=== PATIENT | female | born 1970 | race Caucasian/White ===

== ENCOUNTER 2018-05-26 11:27 | Inpatient (IN) | payer MEDICAID, OTHER ==
[2018-05-26 11:43] LABS: PLATELET COUNT 346 10^3/uL (150-400)
--- NOTE | 2018-05-26 11:58 | EDPHY ---
H & P Stated Complaint: suicidal and left forearm laceration Source: Patient - Personal History Current Tetanus/Diphtheria Vaccine: Unsure Current Tetanus Diphtheria and Acellular Pertussis (TDAP): Unsure - Medical/Surgical History Hx Asthma: No Hx Chronic Respiratory Disease: No Hx Diabetes: No Hx Cardiac Disease: No Hx Renal Disease: No Hx Cirrhosis: No Hx Alcoholism: No Hx HIV/AIDS: No Hx Splenectomy or Spleen Trauma: No Other PMH: migraines, hernia, osteroarthritis and chronic pain - Social History Smoking Status: Current every day smoker Alcohol Use: Sober Drug Use: None Time Seen by Provider: 05/26/18 11:29 HPI/ROS: CHIEF COMPLAINT: Suicidal attempt HISTORY OF PRESENT ILLNESS: 48-year-old female with depression and chronic pain on morphine presents after a suicidal attempt. She has felt that life is not worth living and her path is to . She used a razor to slash her left forearm yesterday. She took extra Morphine yesterday so she wouldn't feel the pain. She was expecting to yesterday, but did not and became anxious that it was taking too long. She presents today after her daughter called 911. She was placed on an M1 hold by PD. Minimal oral intake over the last 2-3 days. Tetanus is up-to-date. REVIEW OF SYSTEMS: complete 10 point ROS reviewed and is negative except for the noted elements in the HPI (Verena Jovel) - Physical Exam Exam: General Appearance: Alert, pleasant Eyes: Pupils equal and round, no conjunctival pallor ENT, Mouth: Mucous membranes moist Neck: Normal inspection Respiratory: Lungs are clear to auscultation Cardiovascular: Regular rate and rhythm Gastrointestinal: Abdomen is soft and nontender Neurological: A&O, nonfocal exam Skin: Warm and dry Extremities: Multiple linear lacerations left forearm Psychiatric: Flat affect (Verena Jovel) Constitutional: Initial Vital Signs Temperature (C) 36.5 C 05/26/18 11:49 Heart Rate 99 05/26/18 11:49 Respiratory Rate 15 05/26/18 11:49 Blood Pressure 92/76 L 05/26/18 11:49 O2 Sat (%) 98 05/26/18 11:49 O2 Delivery Mode Room Air Allergies/Adverse Reactions: No Known Allergies Allergy (Unverified 07/28/09 08:14) Home Medications: Medication Instructions Recorded Diazepam [Valium 10 MG (*)] 0.5 - 1 tab PO Q6H PRN #15 tab 07/28/09 Hydrocodone Bit/Acetaminophen 1 tab PO Q4-6PRN PRN 07/28/09 [LORTAB5/325] morphINE IR 15 mg (*) 05/26/18 Medical Decision Making Procedures: Procedure: Laceration repair. Verbal consent was obtained from the patient. The 10 cm, simple superficial, vertical laceration on the left volar forearm was anesthetized in the usual fashion using 6 mL of 1% lidocaine with epinephrine. The wound was irrigated, draped and explored to its base with a gloved finger. There were no deep structures involved. No tendon injury was identified. The wound was repaired with 5 0 Prolene in continuous running stitch. Hemostasis was achieved and patient tolerated procedure well. The procedure was performed by myself. Procedure: Laceration repair. Verbal consent was obtained from the patient. The 3 cm, simple, vertical, superficial laceration on the left forearm was anesthetized in the usual fashion using 3 mL of 1% lidocaine with epinephrine. The wound was irrigated, draped and explored to its base with a gloved finger. There were no deep structures involved. No tendon injury was identified. The wound was repaired with #1, 5 0 Prolene in simple interrupted pattern. Good hemostasis was achieved and patient tolerated procedure well. The procedure was performed by myself. (Elyssa Douglas) ED Course/Re-evaluation: Patient presents after a suicidal attempt with multiple forearm lacerations. She is on an M1 hold. Laboratory studies significant for mild anemia (Hct 31) and hyponatremia, with a sodium level of 128. Clinical history consistent with dehydration. Will encourage oral fluids. d/w pt, no prior h/o hyponatremia. Quantitative HCG is also minimally elevated at 5.3. I doubt that she is . We will repeat a quantitative HCG level for confirmation. (Verena Jovel) 2036: Patient will have a repeat quant HCG in 48 hours. We are still looking for placement. 2042: Patient has been accepted by Dr. [facility]. EMTALA signed. [facility] is aware that they need to recheck the patient's quant HCG. (Aj Hermosillo) - Data Points Laboratory Results: Laboratory Results 05/26/18 11:30 05/26/18 11:30 05/26/18 05/26/18 05/26/18 15:50 14:20 11:30 WBC RBC Hgb Hct MCV MCH MCHC RDW Plt Count MPV Neut % (Auto) Lymph % (Auto) Mercer % (Auto) Eos % (Auto) Baso % (Auto) Nucleat RBC Rel Count Absolute Neuts (auto) Absolute Lymphs (auto) Absolute Monos (auto) Absolute Eos (auto) Absolute Basos (auto) Absolute Nucleated RBC Immature Gran % Immature Gran # Sodium Potassium Chloride Carbon Dioxide Anion Gap BUN Creatinine Estimated GFR Glucose Calcium Beta HCG, Qual Beta HCG, Quant 5.35 mIU/mL H mIU/mL (0.00-4.83) Ur Random Sodium < 5 mEq/L L mEq/L (30-90) Urine Opiates Screen NON-NEGATIVE H (NEGATIVE) Urine Barbiturates NEGATIVE (NEGATIVE) Ur Phencyclidine Scrn NEGATIVE (NEGATIVE) Ur Amphetamine Screen NEGATIVE (NEGATIVE) U Benzodiazepines Scrn NEGATIVE (NEGATIVE) Urine Cocaine Screen NEGATIVE (NEGATIVE) U Marijuana (THC) Screen NON-NEGATIVE H (NEGATIVE) Ethyl Alcohol 05/26/18 05/26/18 05/26/18 11:30 11:30 11:30 WBC 9.20 10^3/uL 10^3/uL (3.80-9.50) RBC 3.33 10^6/uL L 10^6/uL (4.18-5.33) Hgb 10.8 g/dL L g/dL (12.6-16.3) Hct 31.6 % L % (38.0-47.0) MCV 94.9 fL fL (81.5-99.8) MCH 32.4 pg pg (27.9-34.1) MCHC 34.2 g/dL g/dL (32.4-36.7) RDW 12.8 % % (11.5-15.2) Plt Count 346 10^3/uL 10^3/uL (150-400) MPV 9.3 fL fL (8.7-11.7) Neut % (Auto) 73.0 % % (39.3-74.2) Lymph % (Auto) 22.0 % % (15.0-45.0) Mercer % (Auto) 4.5 % % (4.5-13.0) Eos % (Auto) 0.1 % L % (0.6-7.6) Baso % (Auto) 0.1 % L % (0.3-1.7) Nucleat RBC Rel Count 0.0 % % (0.0-0.2) Absolute Neuts (auto) 6.72 10^3/uL H 10^3/uL (1.70-6.50) Absolute Lymphs (auto) 2.02 10^3/uL 10^3/uL (1.00-3.00) Absolute Monos (auto) 0.41 10^3/uL 10^3/uL (0.30-0.80) Absolute Eos (auto) 0.01 10^3/uL L 10^3/uL (0.03-0.40) Absolute Basos (auto) 0.01 10^3/uL L 10^3/uL (0.02-0.10) Absolute Nucleated RBC 0.00 10^3/uL 10^3/uL (0-0.01) Immature Gran % 0.3 % % (0.0-1.1) Immature Gran # 0.03 10^3/uL 10^3/uL (0.00-0.10) Sodium 128 mEq/L L mEq/L (135-145) Potassium 4.9 mEq/L mEq/L (3.5-5.2) Chloride 96 mEq/L L mEq/L (97-110) Carbon Dioxide 20 mEq/l L mEq/l (22-31) Anion Gap 12 mEq/L mEq/L (6-14) BUN 16 mg/dL mg/dL (7-23) Creatinine 0.7 mg/dL mg/dL (0.6-1.0) Estimated GFR > 60 Glucose 128 mg/dL H mg/dL (70-100) Calcium 9.5 mg/dL mg/dL (8.5-10.4) Beta HCG, Qual POSITIVE Beta HCG, Quant Ur Random Sodium Urine Opiates Screen Urine Barbiturates Ur Phencyclidine Scrn Ur Amphetamine Screen U Benzodiazepines Scrn Urine Cocaine Screen U Marijuana (THC) Screen Ethyl Alcohol < 10 mg/dL mg/dL (0-10) Medications Given: Discontinued Medications Ibuprofen (Motrin) 600 mg PO EDNOW ONE Stop: 05/26/18 20:15 Last Admin: 05/26/18 20:27 Dose: 600 mg Departure - Departure Disposition: [facility] IP Clinical Impression: Severe major depression, Attempted suicide, Personality disorder Forearm laceration Qualifiers: Encounter type: initial encounter Laterality: unspecified laterality Qualified Code(s): S51.819A - Laceration without foreign body of unspecified forearm, initial encounter Condition: Fair Referrals: [facility],. [Primary Care Provider] - As per Instructions
--- NOTE | 2018-05-26 19:08 | ASMTLCPROG ---
Notes Note: Notes: Pt was read her rights, signed them, given a copy and rights were left in chart. Date Signed: 05/26/2018 07:07 PM Electronically Signed By:Johnnie Muse
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
--- NOTE | 2018-05-26 19:41 | ASMTTCLDSP ---
TLC Discharge Disposition Disposition Notes: Notes: In consultation with [facility] ED physician, Nishant Moseley MD and on-call psychiatrist, Tao Fontana MD, both concurred that pt appears to meet 27-65 criteria requiring psychiatric hospitalization as pt appears to be at risk of harm to self due to a mental illness condition. Pt was read the Patient Rights and Responsibilities Statement on 16:00, original placed on chart, and was given photocopy of Rights. Pt signed the Patient Rights. Pt was given the [facility] prohibited belongings list while in the ED. Was patient given the Answers: Yes Inpatient Behavioral Health Prohibited Belongings List while in the ED? For inpatient Bolivar Garcia MD admission, the following psychiatrist agreed to accept patient for admission to Behavioral Health ([facility]): Type of Hold: Answers: M1/72-hour Hold Hold initiated by: Answers: Police Date Signed: 05/26/2018 07:41 PM Electronically Signed By:Johnnie Muse
--- NOTE | 2018-05-26 20:06 | ASMTLCPROG ---
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
[2018-05-26] MEDS ORDERED: IBUPROFEN 600 MG TAB PO ONE (20:14)
[2018-05-26] MEDS ORDERED: MAG HYDROX/AL HYDROX/SIMETH 30 ML UDCUP PO PRN (22:53)
[2018-05-26] MEDS ORDERED: MAGNESIUM HYDROXIDE 30 ML UDCUP PO PRN (22:53)
[2018-05-26] MEDS ORDERED: ACETAMINOPHEN 325 MG TAB PO PRN (22:53)
[2018-05-26] MEDS: LORazepam 0.5 MG TAB PO PRN (23:48)
[2018-05-27] MEDS: IBUPROFEN 800 MG TAB PO PRN ×2 (08:17→21:14)
[2018-05-27] MEDS: LORazepam 0.5 MG TAB PO PRN ×4 (08:17→22:17)
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
--- NOTE | 2018-05-27 10:30 | ASMTCMCOM ---
CM Note CM Note Notes: CC met with pt. to complete MTP. Pt. reports not currently having a job. Pt. stated she is unsure if she can return to her friend's home where she was staying. Pt. denied any current legal issues. Pt. denied drinking alcohol, and denied using THC. Pt. denied all other substance use. Pt. reports "chronic pain", which is "all over" her body. Pt. reports she takes narco and morphine for her chronic pain. Pt. stated this is her first mental health hospitalization. Pt. presents as semi-alert, calm, guarded, withholding information, fair to poor eye contact, unkempt, and somewhat cooperative. Staff report pt. sleeping 6 hours and being medication compliant. CC to have pt. sign ROIs for outpatient providers. Date Signed: 05/27/2018 10:29 AM Electronically Signed By:Rama Thomas
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
[2018-05-27] MEDS ORDERED: NICOTINE 14 MG/24 HR PATCH TD PRN (16:05)
[2018-05-27] MEDS: HYDROCODONE/APAP 5/325 TAB PO PRN ×2 (16:13→22:17)
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
[2018-05-28] MEDS: OLANZapine DISINTEGR 5 MG TAB PO PRN ×2 (00:58→22:36)
[2018-05-28] MEDS: LORazepam 0.5 MG TAB PO PRN ×6 (02:10→22:19)
[2018-05-28] MEDS: HYDROCODONE/APAP 5/325 TAB PO PRN ×3 (03:37→16:32)
[2018-05-28] MEDS: IBUPROFEN 800 MG TAB PO PRN ×2 (04:26→14:14)
--- NOTE | 2018-05-28 10:08 | PDMN ---
Medical Necessity Medical necessity: Pt meets IP criteria as of 05/27/2018 per and [facility] [place]Other psychiatric disorders, Adult: IP care); los > 2 mn to r/o unspecified depressive disorder and/or borderline personality disorder; pt presents on M1 hold after cutting her wrist with a razor and stating this was in an attempt to harm herself. Hx of suicide attempts with ingestion, several admissions, homelessness, opioid use, and cannabis use.
[2018-05-28] MEDS: NICOTINE POLACRILEX 2 MG GUM B PRN ×4 (10:44→22:20)
--- NOTE | 2018-05-28 14:53 | ASMTBHDC ---
Notes Note: Notes: The patient completed an LOLLY for P outpatient services. This commercial real estate underwriter notified the patient that she will send a referral for services on behalf of the patient. The patient agreed to follow up with P via walk-in clinic hours (placed in chart). This commercial real estate underwriter discussed smoking cessation with the patient. Date Signed: 05/28/2018 02:52 PM Electronically Signed By:Tara Myles
--- NOTE | 2018-05-28 17:04 | SOAPPROG ---
SOAP Progress Note Assessment/Plan: Assessment: 48 yo woman with h/o chronic pain and polysubstance dependence was admitted after intentional self-inflicted lac to forearm. She claims she felt hopeless b/ c she "didn't see a path forward" after roommate tried to evict her from his apartment. WEEKEND PLAN: 05/28/18 16:50 1. Patient continues to deny any mood related sxs. She denies sadness, depression, anxiety, hopelessness, helplessness, worthlessness. She also denies any thoughts, plan or intent to hurt herself or anyone else. 2. Patient denies any s/s of opioid w/d. She has been taking [place] 5mg Q6H as often as possible. She is also taking Ativan 1mg Q6H for anxiety, even though patient denied feeling anxious when MD talked to her and she shows no outward signs of anxiety, including no restlessness, fidgeting, distress, distraction. 3. Patient signed LOLLY for her current PCP, Jerrica Singer, and for [facility]. Patient said her MOC recommended she see a therapist at [facility] in [place]. CC will make a referral to [facility]. contacted [facility] at to reach Jerrica Singer NP, but the urgent care said she doesn't work there anymore. MD will ask CC to attempt to locate patient's PCP and send a copy of Discharge Summary to her provider when she leaves hospital. 4. MD advised patient against using high doses of narcotics to treat her chronic pain. MD is concerned b/c patient's SOC, Silvana, reported incident in past when patient was driving around taking more than prescribed amount of narcotics and texted her boyfriend at the time. Boyfriend alerted 911 and police found patient unconscious in public park. Patient also admitted to taking more than prescribed amount of opiates on day of admission prior to cutting herself on forearm. believes patient is at risk for severe adverse consequences of taking too many opiates. She is also at risk for engaging in reckless and dangerous behavior while under the influence of narcotics and other drugs, such as THC, which patient uses on regular basis. has advised patient of these risks and suggested she work with [facility] and shipyard painter apprentice to reduce her dependence on opiates and THC and find less dangerous alternative methods to treat her chronic pain. Patient says she is not willing to do this. 5. Patient plans to d/c tomorrow when hold expires. She is trying to contact her roommate to see if she can stay at his apartment for a few days until she locates a new housing arrangement. 6. Likely d/c tomorrow. Subjective: MD and RN met with patient. Patient says she was not feeling depressed prior to cutting her arm. She claims it was an impulsive act b/c she felt she didn't have a "path forward" when she found out her roommate was evicting her. She denies feeling sad, helpless, hopeless, worthless, anxious or depressed. She denies any prior manic episodes. She denies any psychotic sxs. She does not want to take any psych meds, and has no acute condition or sxs that would require any psychotropic medications. Based on SOC's report, patient has done reckless and dangerous things in past under the influence of mood altering substances such as opiates and THC. MD recommended patient reduce her reliance on narcotics and THC by finding effective alternatives to manage her chronic pain. MD referred patient to [facility] through [facility] and a shipyard painter apprentice within the [facility]. However, patient states she isn't interested in reducing her use of opiates or finding alternatives to her current pain regimen. Objective: Vital Signs Temp Pulse Resp BP Pulse Ox 36.3 C 89 16 101/56 L 97 05/28/18 06:00 05/28/18 06:00 05/28/18 06:00 05/28/18 06:00 05/28/18 06:00 Laboratory Results 05/28/18 14:00 MSE: Affect: Euthymic Mood: "OK" TP: Linear, goal-directed TC: Denies any SI/ HI Insight/Judgment: Poor - Time Spent With Patient Time Spent With Patient: 25" - Pending Discharge Pending Discharge Within 24 Hours: Yes Pending Discharge Date: 05/29/18 (Likely to d/c on Tuesday) Pending Discharge Time: 11:00 ICD10 Worksheet Patient Problems: Problems Problem Status Onset Attempted suicide Acute Forearm laceration Acute Personality disorder Acute Severe major depression Acute
[2018-05-28] MEDS: FERROUS SULFATE 325 MG TAB PO SCH (18:16)
[2018-05-29] MEDS: LORazepam 0.5 MG TAB PO PRN (02:26)
[2018-05-29] MEDS: OLANZapine DISINTEGR 5 MG TAB PO PRN (02:27)
[2018-05-29] MEDS: HYDROCODONE/APAP 5/325 TAB PO PRN ×2 (04:07→10:48)
[2018-05-29 06:29] VITALS: BP 112/57
[2018-05-29] MEDS: IBUPROFEN 800 MG TAB PO PRN (08:13)
[2018-05-29] MEDS: FERROUS SULFATE 325 MG TAB PO SCH (08:13)
--- NOTE | 2018-05-29 08:44 | ASMTBHDC ---
Notes Note: Notes: CC was able to confirm all necessary follow up apts. including PCP apt per Hospitalist, etc Follow up with: [address], [address] O# [phone] [facility] Time & Dates: Tuesday-Tuesday from 8:30-11:30 & 12:30-14:30; excluding afternoons This is for the initial 30 minute appointment to do paperwork and CT should bring ID, insurance card, etc. [address] [address] Must complete coordinated entry through [facility] prior to arriving at the senior living. Dr. Coburn [facility] [address], FAX Next Apt: TuesdayMay 30 (05/30/18) at 4pm with Dr[address] Coburn. Please bring ID, insurance card and hospital paperwork. Follow up with: [address], [address] O# [phone] [facility] Time & Dates: Tuesday-Tuesday from 8:30-11:30 & 12:30-14:30; excluding afternoons Next appointment This is for the initial 30 minute appointment to do paperwork and CT should bring ID, insurance card, etc. [address] [address] Must complete coordinated entry through [facility] prior to arriving at the senior living. Dr. Coburn [facility] [address], FAX Next Apt: TuesdayMay 30 (05/30/18) at [address] Coburn. Please bring ID, insurance card and hospital paperwork. Date Signed: 05/29/2018 08:43 AM Electronically Signed By:Bong Gaitan
--- NOTE | 2018-05-29 09:13 | SOAPPROG ---
SOAP Progress Note Assessment/Plan: Assessment: Anemia: H/H stable 05/28/2018 to 05/29/2018. Advise follow-up testing within 3 - 5 days. * Continue ferrous sulfate daily for 30 days and then recheck CBC and iron panel. * Unclear of degree of anemia is accounted for by blood loss from lacerations. Advise FIT test, hemoccults or screening colonoscopy to evaluate for GI blood loss. Consider Gynecology evaluation regarding possibility of dysfunctional uterine bleeding. Hyponatremia, resolved Positive test. B-HCG subsequently normal. Likely false positive. 05/29/18 09:07 Subjective: Labs reviewed. Objective: Vital Signs Temp Pulse Resp BP Pulse Ox 36.4 C 59 L 14 112/57 L 97 05/29/18 06:00 05/29/18 06:00 05/29/18 06:00 05/29/18 06:00 05/29/18 06:00 Laboratory Results 05/29/18 05:00 05/28/18 14:00 ICD10 Worksheet Patient Problems: Problems Problem Status Onset Adjustment disorder with mixed disturbance of emotions and conduct Acute Cannabis use disorder, severe, dependence Acute Nicotine dependence Acute Opioid use disorder, severe, dependence Acute Severe benzodiazepine use disorder Acute
[2018-05-29] MEDS: NICOTINE POLACRILEX 2 MG GUM B PRN ×3 (09:27→13:41)
--- NOTE | 2018-05-29 11:27 | ASMTBHDC ---
Notes Note: Notes: The patient participated in clinical treatment team rounds to discuss her discharge plan. The patient is not interested in utilizing homeless assisted services; she is likely to request housing supportive from friends/family. The patient discussed her suicide attempt including that she recognizes her "instinct to live" and her belief in the "spiritual or higher power" that caused her to abort the attempt. Date Signed: 05/29/2018 11:25 AM Electronically Signed By:Tara Myles
--- NOTE | 2018-05-29 17:51 | BDS ---
[f rep st] BEHAVIORAL HEALTH DISCHARGE SUMMARY REASON FOR ADMISSION: From the ED note dated 05/26/2018, patient presented to the emergency room after a suicide attempt. Patient reported she felt that her life was not worth living and reported her "path is to ." Patient reported using a razor to slash her wrist the day before presenting to the emergency department. Patient reported taking extra morphine the day before presenting to the emergency department so she "wouldn't feel the pain." Patient was admitted involuntarily and on an M1 hold for being a danger to herself. Patient was admitted for safety, crisis stabilization, and medication management. ADMITTING DIAGNOSES: 1. Adjustment disorder, mixed disturbance of conduct and mood. 2. Substance induced mood disorder. 3. Opiate use disorder, severe. 4. Cannabis use disorder, severe. 5. Nicotine dependence. ADMISSION PHYSICAL EXAM: Patient was seen on 05/27/2018 for history and physical consultation for medical clearance for inpatient psychiatric hospitalization and treatment. Patient was medically cleared for inpatient psychiatric hospitalization and treatment. For further details, please refer to consultation document dated 05/27/2018. ADMISSION LABS: 1. CBC within normal limits except hemoglobin was low at 7.5, hematocrit was low at 22.4. Eosinophils low at 0.1, basophils low at 0.1, absolute neutrophils elevated at 6.72, absolute eosinophils low at 0.01 and absolute basophils low at 0.01%, retic elevated at 3.09. 2. BMP within normal limits. 3. Calcium was low at 8.4. 4. Iron low at 20.0. 5. Iron saturation low at 6. 6. Beta HCG quantitative test on 05/28/2018 was within normal limits. Results were 3.27. Reference ranges non females less than 4.83, range is from 0.00-4.83. Patient reports not having sex for 7 years and reports she has no reason to believe she could be . 7. Urine random sodium was low at less than 5. 8. Toxicology screen was non-negative for opiates, non negative for THC, negative for all other substances screened and negative for ethyl alcohol. MAJOR PROCEDURES OR TESTS: None. HOSPITAL COURSE: The most prominent symptoms and behaviors while the patient was here were reports of severe anxiety. Treatment modalities utilized were milieu and group therapy. Patient was not started on any psychotropic medications during the course of her hospitalizations as they were not indicated. Patient has improved considerably with no signs of psychiatric symptoms and no psychiatric symptoms expressed. Patient reports she has improved since admission, states to be in stable condition, feels safe to discharge, and she contracts for safety. Patients response to treatment was good. There were no adverse or unexpected results of treatment. The patient was safe throughout stay, active in treatment, engaged in groups, and was appropriate with staff. Patient met with treatment team prior to discharge to assess readiness to discharge and review discharge plan. The treatment team consensus is the patient in stable condition, has a safe discharge plan, and is ready to discharge today. CONDITION AT DISCHARGE: Patient is in stable condition and is no longer a danger to self or others, and is not gravely disabled due to mental illness. Patient is no longer in need of inpatient level of care, and can be safely and effectively treated within the community. The patients level of risk at time of discharge is low. MSE: The patient is casually dressed and with good hygiene , and looks stated age. Patient is sitting, posture is upright, and position is relaxed. Patient appears awake, alert, and responds appropriately and reasonably during interview. Patient is engaged, relates well to interviewer, and emotional facial expression is appropriate to situation and changes appropriately with topic. Patient is cooperative, makes comfortable eye contact , and movements are voluntary, deliberate, coordinated, and smooth and even with no inappropriate movements. Patient makes laryngeal sounds effortlessly and shares conversation appropriately; pace of conversation is appropriate, and stream of talking is fluent; articulation is clear and understandable; word choice is effortless and appropriate for education level; completes sentences, occasionally pausing to think; rate and volume are appropriate for interview and setting. Patient reports mood as euthymic. Patients affect is stable with full variable range, congruent with mood, and appropriate to speech and circumstances. Patient has linear and logical thinking, with no loose associations, tangential thought, thought blocking, concrete thinking, or any other signs of formal thought disorder. Patient denies suicidal and homicidal ideation, and denies hallucinations and delusions. Patient appears to be a reliable historian with sound judgement and good insight into current condition. Patient has no apparent dysfunction in recent or remote memory noted , and no evidence of gross cognitive dysfunction noted at any point during the interview. DISCHARGE DIAGNOSES: 1. Adjustment disorder, mixed disturbance of conduct and mood. 2. Substance induced mood disorder. 3. Opiate use disorder, severe. 4. Cannabis use disorder, severe. 5. Nicotine dependence. CURRENT MEDICATIONS: After reviewing options, risks and benefits with the patient, patient agrees to continue: 1. Nicorette gum 2 mg q.1 hour p.r.n. 2. Motrin 800 mg p.o. q.8 hours p.r.n. Patient requests no prescriptions at time of discharge and no prescriptions are provided. Medications are reviewed at time of discharge with patient to ensure accuracy and patient understanding. DISPOSITION: Patient left hospital independently and voluntarily. FOLLOWUP: international coordinator reports the appropriate outpatient follow-up services have been established and outpatient appointments have been scheduled. The patient received written instructions with times and dates of outpatient follow-up appointments. The following follow-up recommendations were provided to the patient at discharge: Continue psychotropic medications as prescribed and attend appointments as scheduled. Report any side effects to a psychiatric outpatient provider, a primary care provider, or other health care team assistant. Address any questions or problems concerning the psychotropic medications with a psychiatric outpatient provider, a primary care provider, or other health care team assistant. Contact [facility] or [facility], or go to the nearest emergency room, if you are ever a danger to yourself/others, or unable to care for yourself. As soon as possible, establish a routine medication management treatment with a psychiatric provider, establish routine therapy appointments, and follow-up with a primary care provider. SUBSTANCE ABUSE BRIEF INTERVENTION: Brief intervention regarding the risks of cannabis and nicotine abuse is provided to patient with goal to reduce the risk of harm that could result from the continued use of cannabis and nicotine, with the general aim to investigate the problem, raise awareness of problem, develop a solution with the patient, recommend a specific change or activity, and motivate the patient toward change. Assess substance abuse behavior and give supportive advice about harm reduction, recommend a reduction in hazardous/at- risk consumption patterns, and facilitate referrals for additional specialized treatment with care team assistant. Intermediate goal is for the patient to quit and attend outpatient substance abuse treatment. Intervention focus on intermediate goals to allow for more immediate success in the treatment process to keep the patient motivated. Review following with patient: Cannabis use risks: Short-term use: impaired short-term memory, impaired motor coordination, altered judgement, in high doses paranoia and psychosis. Long-term use addiction, diminished life satisfaction and achievement, symptoms of chronic bronchitis, and increased risk of chronic psychosis disorders if predisposition to such disorders. In withdrawal anger, aggression irritability, anxiety and nervousness, decreased appetite or weight loss, restlessness, and sleep difficulties with strange dreams. Nicotine dependence: lung cancer, other cancers, heart and circulatory system problems, diabetes, eye problems, infertility and impotence, more prone to respiratory infections, weakened senses , teeth and gum disease, premature aging, second hand smoke. Withdrawal symptoms include strong cravings, anxiety, irritability, restlessness, difficulty concentrating, depressed mood, frustration, anger, increased hunger, insomnia, and constipation or diarrhea. OUTPATIENT SUBSTANCE ABUSE TREATMENT: Patient referred to outpatient provider and treatment for continued treatment related to substance abuse. LEGAL COURSE: Patient was admitted on an M1 hold for involuntary inpatient psychiatric hospitalization and treatment. Patient discharged today independently and voluntarily. ATTITUDE AT TIME OF DISCHARGE: The patients attitude was positive at time of discharge, and patient reports looking forward to discharging today. The patient reports she feels safe to discharge, is no longer a danger to herself or others, is in stable condition, and contracts for safety. Patient states she will continue medications as prescribed, and establish medication management treatment with an outpatient provider after discharge. Patient reports she understands the information that has been provided to her, and she understands, accepts, and agrees to psychotropic medications. Patient describes internal protective factors as the coping skills she has learned while hospitalized here, and she plans to continue to practice these coping skills after discharge. LABS AND STUDIES: There were no pending labs or studies at time of discharge. ADVANCE DIRECTIVES: There were no advance directives on file, and patient was full code during this hospitalization. The following psychotropic medication treatment informed consent and recommendations were provided to the patient at time of discharge. Patient reports she understands, accepts, and agrees to the information that has been provided. PSYCHOTROPIC MEDICATION TREATMENT INFORMED CONSENT and RECOMMENDATIONS: Review nature of condition, diagnosis, and prognosis. Review nature and purpose of psychotropic medication treatment. Review type of psychotropic medications being prescribed. Review risk and benefits of psychotropic medication treatment. Review probable length of time will need to take medications. Review risk and benefits of not undergoing psychotropic medication treatment. Review alternative treatments to psychotropic medications. Review psychotropic medications contraindications, side effects, and importance of reporting any side effects to a psychiatric provider, primary care provider, or other health care team assistant. Review importance of her asking a psychiatric provider or primary care provider any questions or problems concerning the psychotropic medications. Review importance of reporting to a psychiatric provider, primary care provider, or other health care team assistant if she plans to or becomes . Review safety plan and the importance to contact [facility] or [facility] , or go to the nearest emergency room, if ever a danger to yourself/others, or unable to care for yourself. Recommend upon discharge to establish routine medication management treatment with a psychiatric provider, establish routine therapy appointments, and follow-up with a primary care provider. Verify patient understands, accepts, and agrees to the information that has been provided. /[id number]/MODL [id number]
== END 2018-05-29 15:00 | disposition home or self-care (01) | DRG 882 ==
LOC: EDUNIT# → BBEH 22:45
PROVIDERS: ADMIT Psychiatry & Neurology Psychiatry; ATTEND Psychiatry & Neurology Psychiatry
PROC: 0HQEXZZ Repair Left Lower Arm Skin, External Approach (ICD-10-PCS; principal; 2018-05-26)
DX: F43.25 Adjustment disorder with mixed disturbance of emotions and conduct (principal); S51.812A Laceration without foreign body of left forearm, initial encounter; X78.8XXA Intentional self-harm by other sharp object, initial encounter; F11.94 Opioid use, unspecified with opioid-induced mood disorder; F12.959 Cannabis use, unspecified with psychotic disorder, unspecified; F17.200 Nicotine dependence, unspecified, uncomplicated; G89.29 Other chronic pain; D64.9 Anemia, unspecified; Z59.0 Homelessness
CPT/HCPCS: 80305; G0480